=== PATIENT | female | born 1990 | race American Indian/Alaskan Native ===

== ENCOUNTER 2019-07-13 21:54 | Emergency (ER) | payer OTHER ==
[2019-07-13] MEDS ORDERED: SODIUM CHLORIDE 0.9% 1000 ML 1,000 ML IV ONE (22:05)
[2019-07-13] MEDS ORDERED: dexAMETHasone 4 MG/ML VIAL IV ONE (22:06)
[2019-07-13] MEDS ORDERED: ONDANSETRON 4 MG/2 ML INJ IV ONE (22:12)
[2019-07-13] MEDS ORDERED: FAMOTIDINE 20 MG/2 ML INJ IV ONE (22:12)
--- NOTE | 2019-07-13 22:21 | Emergency Department Report ---
<JARED MONTOYA LATANYAIZAIAH - Last Filed: 07/13/19 22:12> ED Allergic Reaction HPI - General Chief complaint: Allergic Reaction Stated complaint: ALLERGIC REACTION Time Seen by Provider: 07/13/19 22:04 Source: patient Mode of arrival: Ambulatory Limitations: No Limitations - History of Present Illness Initial Comments: This is a 29-year-old female who presents to the emergency room with sensation of throat swelling after eating cashews. Patient reports history 2 months and did not know his chronic cashew milk intake. After testing ice cream she immediately started having symptoms. Patient states she took 2 Benadryl's and came directly to the emergency room. Denies follow up with digital campaign specialist. Denies drooling or vocal changes. MD Complaint: allergic reaction Onset/Timin -: minutes(s) Exposure: food Symptoms: itching, difficulty swallowing, nausea. denies: rash, facial swelling, lip swelling, hoarseness, vomiting Severity: moderate Treatment Prior to Arrival: benadryl Previous Allergy History: prior ED visit(s), anaphylaxis - Related Data Previous Rx's Medication Instructions Recorded Last Taken Type EPINEPHrine [Epipen 2-Zackary] 0.3 mg IJ ONCE PRN #1 auto.injct 07/14/19 Unknown Rx Famotidine [Pepcid] 40 mg PO QHS #10 tablet 07/14/19 Unknown Rx diphenhydrAMINE [Benadryl CAP] 50 mg PO Q8HR PRN #20 capsule 07/14/19 Unknown Rx predniSONE [Deltasone] 40 mg PO DAILY 5 Days #10 tablet 07/14/19 Unknown Rx Allergies Allergy/AdvReac Type Severity Reaction Status Date / Time nut - unspecified Allergy Angioedema Verified 07/13/19 21:59 ED Review of Systems Constitutional: denies: chills, fever ENT: throat pain. denies: ear pain Respiratory: denies: cough, shortness of breath, wheezing Cardiovascular: denies: chest pain, palpitations Gastrointestinal: denies: abdominal pain, nausea, diarrhea Skin: pruritus. denies: rash, lesions Neurological: denies: headache, weakness, paresthesias Psychiatric: denies: anxiety, depression ED Past Medical Hx - Past Medical History Previous Medical History?: No - Surgical History Past Surgical History?: No - Social History Smoking Status: Never Smoker Substance Use Type: None - Medications Home Medications: Home Medications Medication Instructions Recorded Confirmed Last Taken Type EPINEPHrine [Epipen 2-Zackary] 0.3 mg IJ ONCE PRN #1 auto.injct 07/14/19 Unknown Rx Famotidine [Pepcid] 40 mg PO QHS #10 tablet 07/14/19 Unknown Rx diphenhydrAMINE [Benadryl CAP] 50 mg PO Q8HR PRN #20 capsule 07/14/19 Unknown Rx predniSONE [Deltasone] 40 mg PO DAILY 5 Days #10 tablet 07/14/19 Unknown Rx ED Physical Exam - General Limitations: No Limitations General appearance: alert, in no apparent distress, obese (Morbid) - ENT ENT exam: Present: normal orophraynx (Uvula midline and swollen), mucous membranes moist, TM's normal bilaterally, normal external ear exam - Neck Neck exam: Present: normal inspection - Respiratory Respiratory exam: Present: normal lung sounds bilaterally. Absent: respiratory distress - Cardiovascular Cardiovascular Exam: Present: regular rate, normal rhythm. Absent: systolic murmur, diastolic murmur, rubs, gallop - GI/Abdominal GI/Abdominal exam: Present: soft, normal bowel sounds ED Medical Decision Making - Medical Decision Making This is a 29-year-old who presents to the emergency room with sensation of throat swelling and pruritus after eating cashews. Vitals are stable. Negative respiratory symptoms such as wheezing, respiratory distress, or cardiovascular symptoms. Mild uvula swelling and midline. Airway is patent. Nausea without vomiting, or diarrhea. Given steroids, IV fluids, antiemetics, and Pepcid. Chart signed to Italia Lorenzo for monitoring. ED Disposition Clinical Impression: Anaphylactic reaction due to tree nuts and seeds Qualifiers: Encounter type: initial encounter Qualified Code(s): T78.05XA - Anaphylactic reaction due to tree nuts and seeds, initial encounter Disposition: TO HOME OR SELFCARE Condition: Stable Instructions: Anaphylaxis (ED) Additional Instructions: Please take medication as prescribed. Please avoid any of your allergies. Please follow-up with your primary care doctor. Please discuss with your primary care doctor about referrals for allergy testing. Return to emergency room immediately for any new or worsening symptoms. If begin to feel shortness of breath, throat swelling, facial swelling please use EpiPen immediately and be seen in the ER immediately after or call 911. Prescriptions: Famotidine [Pepcid] 40 mg PO QHS #10 tablet diphenhydrAMINE [Benadryl CAP] 50 mg PO Q8HR PRN #20 capsule PRN Reason: itching predniSONE [Deltasone] 40 mg PO DAILY 5 Days #10 tablet EPINEPHrine [Epipen 2-Zackary] 0.3 mg IJ ONCE PRN #1 auto.injct PRN Reason: Anaphylaxis Referrals: PRIMARY CARE, [Primary Care Provider] - 2-3 Days Print Language: HUNGARIAN <JUNIOR VICKERS - Last Filed: 07/14/19 06:49> ED Review of Systems ROS: Stated complaint: ALLERGIC REACTION Other details as noted in HPI ED Course Vital Signs 07/13/19 07/13/19 07/14/19 21:56 23:30 01:25 Temperature 98.2 F 98 F 98 F Pulse Rate 87 72 78 Respiratory 20 11 L 22 Rate Blood Pressure 141/66 Blood Pressure 120/67 131/53 [Left] O2 Sat by Pulse 100 98 96 Oximetry - Reevaluation(s) Reevaluation #1: 07/13/19 11:30 PM Patient states that she still has the sensation of throat closing feels some mild shortness of breath, lungs are clear bilaterally on auscultation, no wheezing, no stridor, no respiratory distress, no accessory muscle use, no facial swelling, no lip swelling, no tongue swelling, uvula appears very mildly enlarged midline, difficult to say if this is patient's normal anatomy, airways patent ED Medical Decision Making - Medical Decision Making Patient states that she still has the sensation of throat closing feels some mild shortness of breath, lungs are clear bilaterally on auscultation, no wheezing, no stridor, no respiratory distress, no accessory muscle use, no facial swelling, no lip swelling, no tongue swelling, uvula appears very mildly enlarged midline, difficult to say if this is patient's normal anatomy, airways patent Patient given subcutaneous epinephrine Patient was observed for multiple hours while in the emergency department states that her symptoms completely resolved and she no longer feels any throat swelling or any difficulty breathing, she was feeling much better and ready to go home Given prescription for EpiPen, Pepcid, Benadryl, prednisone advised pt please take medication as prescribed. Please avoid any of your allergies. Please follow-up with your primary care doctor. Please discuss with your primary care doctor about referrals for allergy testing. Return to emergency room immediately for any new or worsening symptoms. If begin to feel shortness of breath, throat swelling, facial swelling please use EpiPen immediately and be seen in the ER immediately after or call 911. Critical care attestation.: If time is entered above; I have spent that time in minutes in the direct care of this critically ill patient, excluding procedure time. ED Disposition Is pt being admited?: No Does the pt Need Aspirin: No Time of Disposition: 01:46
[2019-07-13] MEDS ORDERED: EPINEPHrine/PF (1:1,000) 1 MG/1 ML INJ SUB-Q ONE (23:19)
[2019-07-14 01:25] VITALS: BP 131/53
== END 2019-07-14 01:58 | disposition home or self-care (01) ==
LOC: ED 21:54
DX: T78.05XA Anaphylactic reaction due to tree nuts and seeds, initial encounter (principal); R22.9 Localized swelling, mass and lump, unspecified; R13.10 Dysphagia, unspecified; R11.0 Nausea; Z79.899 Other long term (current) drug therapy; Z91.018 Allergy to other foods; X58.XXXA Exposure to other specified factors, initial encounter; Y93.89 Activity, other specified; Y92.89 Other specified places as the place of occurrence of the external cause; Y99.8 Other external cause status
CPT/HCPCS: 96372; 96374; 96375; 99283; J0171; J1100; J2405; J7030; 96361